=== PATIENT | female | born 1995 | race Caucasian/White ===

== ENCOUNTER → 2022-12-19 | Day surgery (SDC) | payer BC ==
[~2022-12-19] VITALS: Ht 172.7 cm; Wt 95.8 kg
[~2022-12-19] MED LIST: CETI10CH PO; EPIP0.3I2 IM; LARI1TAB PO; LIDOCAINE 2% 100MG/5ML SDV (FOR ANES.) As Ordered ONE; MONT10TA97 PO; NS 1,000 ML IV ONE; OMEP1CAP71 PO; ONDANSETRON 4MG 2ML VIAL As Ordered ONE; VENTAER INH; fentaNYL 100 MCG/2 ML INJECTION As Ordered ONE; propofoL 200 MG/20 ML VIAL As Ordered ONE
[2022-12-19 12:20] VITALS: BP 117/72; O2SAT 98
== END | disposition home or self-care (01) ==
LOC: M OPP 09:30
PROVIDERS: ATTEND Internal Medicine Gastroenterology
DX: K92.1 Melena (principal); K64.4 Residual hemorrhoidal skin tags; K64.8 Other hemorrhoids; K30 Functional dyspepsia; K22.89 Other specified disease of esophagus; K29.70 Gastritis, unspecified, without bleeding; K63.89 Other specified diseases of intestine; Z79.3 Long term (current) use of hormonal contraceptives; Z79.51 Long term (current) use of inhaled steroids; Z79.52 Long term (current) use of systemic steroids; Z79.83 Long term (current) use of bisphosphonates; Z79.899 Other long term (current) drug therapy; Z88.0 Allergy status to penicillin; Z88.1 Allergy status to other antibiotic agents; Z91.018 Allergy to other foods
CPT/HCPCS: 43239; 45380; 88305; J2405; J3010